=== PATIENT | female | born 2000 | race Caucasian/White ===

== ENCOUNTER 2022-04-25 09:09 | Emergency (ER) | payer MEDICAID, OTHER ==
[~2022-04-25] VITALS: Ht 165.1 cm; Wt 66.8 kg
[2022-04-25] MEDS ORDERED: HYDR50TA70 PO (09:19)
[2022-04-25] MEDS ORDERED: ABIL1INJ2 IM (09:19)
[2022-04-25] MEDS ORDERED: PRAZ1CAP PO (09:19)
[2022-04-25] MEDS ORDERED: TRIL1TAB PO (09:19)
[2022-04-25] MEDS ORDERED: KETO10TAB PO (11:22)
[2022-04-25] MEDS ORDERED: CYCL5TAB PO (11:22)
[2022-04-25 11:50] VITALS: BP 103/74
== END 2022-04-25 12:03 | disposition home or self-care (01) ==
LOC: M ED 09:09
DX: S13.4XXA Sprain of ligaments of cervical spine, initial encounter (principal); V47.1XXA Car passenger injured in collision with fixed or stationary object in nontraffic accident, initial encounter; Y92.410 Unspecified street and highway as the place of occurrence of the external cause; Y93.89 Activity, other specified; Y99.8 Other external cause status

== ENCOUNTER 2022-06-13 20:41 | Inpatient (IN) | payer MEDICAID, OTHER ==
[~2022-06-13] VITALS: Ht 165.1 cm; Wt 69.3 kg
[~2022-06-13 20:41] MED LIST: ABIL1INJ2 IM; CYCL5TAB PO; HYDR50TA70 PO; KETO10TAB PO; PRAZ1CAP PO; TRIL1TAB PO
[2022-06-13] MEDS ORDERED: NS 1,000 ML IV ONE (20:55)
[2022-06-13] MEDS ORDERED: HALOPERIDOL 5MG/ML 1ML VIAL IM STA (21:09)
[2022-06-13 21:25] LABS: HEMATOCRIT 37.6 % (36.0-47.0); MEAN CORPUSCULAR HEMOGLOBIN 26.8 pg (27.0-33.0); MEAN CORPUSCULAR HGB CONC 31.9 g/dl (32.0-36.5); MEAN CORPUSCULAR VOLUME 84.1 fl (80.0-96.0); PLATELET COUNT, AUTOMATED 384 10^3/uL (150-450); RED BLOOD COUNT 4.47 10^6/uL (4.00-5.40); WHITE BLOOD COUNT 9.7 10^3/uL (4.0-10.0)
[2022-06-13 21:50] LABS: ETHYL ALCOHOL (ETHANOL) < 0.003 % (0.000-0.010)
[2022-06-13 21:52] LABS: ACETAMINOPHEN LEVEL < 2.0 UG/ML (10.0-20.0); ALKALINE PHOSPHATASE 91 U/L (46-116); ALT/SGPT 36 U/L (7.0-40); AST/SGOT 33 U/L (<34); BILIRUBIN,DIRECT < 0.1 MG/DL (<0.4); BILIRUBIN,TOTAL 0.3 MG/DL (0.3-1.2); BLOOD UREA NITROGEN 9 MG/DL (9-23); CARBON DIOXIDE LEVEL 25 MMOL/L (20-31); CHLORIDE LEVEL 107 MMOL/L (98-107); GLOMERULAR FILTRATION RATE > 60.0 (>60); GLUCOSE, FASTING 92 MG/DL (60-100); HCG, SERUM QUALITATIVE NEGATIVE (NEGATIVE); POTASSIUM SERUM 4.3 MMOL/L (3.5-5.1); SALICYLATE LEVEL < 3.0 MG/DL (<30); SODIUM LEVEL 138 MMOL/L (136-145); TOTAL PROTEIN 7.1 G/DL (5.7-8.2)
[2022-06-13] MEDS ORDERED: HYDR50TA70 PO (21:52)
[2022-06-13] MEDS ORDERED: PRAZ1CAP PO (21:52)
[2022-06-13] MEDS ORDERED: OXCA300T14 PO (21:52)
[2022-06-13] MEDS ORDERED: ABIL1INJ2 IM (21:52)
[2022-06-13 21:54] LABS: THYROID STIMULATING HORMONE 1.702 uIU/ML (0.55-4.78)
[2022-06-13] MEDS ORDERED: HOME MED LIST COMPLETE! XX SCH (21:55)
[2022-06-14 01:50] LABS: AMPHETAMINES LEVEL URINE NEGATIVE (NEGATIVE); BENZODIAZEPINES URINE NEGATIVE (NEGATIVE)
[2022-06-14 01:51] LABS: BARBITURATES URINE NEGATIVE (NEGATIVE); CANNABINOIDS URINE NEGATIVE (NEGATIVE); COCAINE METABOLITE URINE NEGATIVE (NEGATIVE); METHADONE URINE NEGATIVE (NEGATIVE); OPIATES URINE NEGATIVE (NEGATIVE); PHENCYCLIDINE URINE NEGATIVE (NEGATIVE)
[2022-06-14] MEDS ORDERED: OLANZapine ORAL DISINTEGRATING TAB 5MG PO PRN (03:35)
[2022-06-14] MEDS ORDERED: traZODone 50 MG TAB PO PRN (03:35)
[2022-06-14] MEDS ORDERED: MAALOX 30 ML SUSP *UDC PO PRN (03:35)
[2022-06-14] MEDS ORDERED: MOM 30ML SUSPENSION UDC PO PRN (03:35)
[2022-06-14 05:47] VITALS: BP 109/61
[2022-06-14] MEDS: OXcarbazepine 300 MG TAB PO SCH ×2 (09:09→21:31)
[2022-06-14 16:07] VITALS: BP 114/57
[2022-06-14] MEDS: PRAZOSIN 1 MG CAP PO SCH (21:32)
[2022-06-15 06:15] VITALS: BP 135/70
[2022-06-15] MEDS: OXcarbazepine 300 MG TAB PO SCH ×2 (09:39→20:09)
[2022-06-15 18:03] VITALS: BP 138/69
[2022-06-15 20:09] VITALS: BP 122/78
[2022-06-15] MEDS: PRAZOSIN 1 MG CAP PO SCH (20:09)
[2022-06-16 06:59] VITALS: BP 102/56
[2022-06-16] MEDS: OXcarbazepine 300 MG TAB PO SCH (08:38)
[2022-06-16] MEDS ORDERED: HYDR50TA70 PO (10:49)
[2022-06-16] MEDS ORDERED: OXCA300T14 PO (10:49)
[2022-06-16] MEDS ORDERED: ABIL1INJ2 IM (10:49)
== END 2022-06-16 13:37 | disposition home or self-care (01) | DRG 750 ==
LOC: EDSEX 20:41 → EDBD 20:41 → M ED 20:41 → M ED INP 06-14 03:14 → M PSY 06-14 05:15
PROVIDERS: ADMIT Psychiatry & Neurology Psychiatry; ATTEND Psychiatry & Neurology Psychiatry
DX: F25.0 Schizoaffective disorder, bipolar type (principal); R45.851 Suicidal ideations; F43.10 Post-traumatic stress disorder, unspecified; F90.9 Attention-deficit hyperactivity disorder, unspecified type; Z91.410 Personal history of adult physical and sexual abuse; Z81.8 Family history of other mental and behavioral disorders; Z20.822 Contact with and (suspected) exposure to COVID-19; Z79.899 Other long term (current) drug therapy; Z91.51 Personal history of suicidal behavior

== ENCOUNTER 2022-07-04 10:39 | Emergency (ER) | payer MEDICAID ==
[~2022-07-04] VITALS: Ht 165.1 cm; Wt 70.7 kg
[~2022-07-04 10:39] MED LIST changes: +OXCA300T14 PO
[2022-07-04 10:40] VITALS: BP 123/76
[2022-07-04 11:48] LABS: BASO # 0.1 10^3/uL (0.0-0.2); BASO % 0.7 % (0.0-1.0); EOS # 0.1 10^3/uL (0.0-0.5); EOS % 0.7 % (0.0-3.0); HEMATOCRIT 37.4 % (36.0-47.0); LYMPH # 1.6 10^3/uL (1.5-5.0); LYMPH % 22.3 % (24.0-44.0); MEAN CORPUSCULAR HEMOGLOBIN 26.7 pg (27.0-33.0); MEAN CORPUSCULAR HGB CONC 32.1 g/dl (32.0-36.5); MEAN CORPUSCULAR VOLUME 83.3 fl (80.0-96.0); MONO # 0.5 10^3/uL (0.0-0.8); MONO % 7.6 % (2.0-8.0); NEUTROPHILS # 4.9 10^3/uL (1.5-8.5); NEUTROPHILS % 68.4 % (36.0-66.0); PLATELET COUNT, AUTOMATED 388 10^3/uL (150-450); RED BLOOD COUNT 4.49 10^6/uL (4.00-5.40); WHITE BLOOD COUNT 7.1 10^3/uL (4.0-10.0)
[2022-07-04] MEDS ORDERED: ONDANSETRON 4MG 2ML VIAL IV ONE (12:00)
[2022-07-04 12:12] LABS: LIPASE 42 U/L (12-53)
[2022-07-04 12:13] LABS: HCG, SERUM QUALITATIVE NEGATIVE (NEGATIVE)
[2022-07-04 12:15] LABS: ALBUMIN 3.9 G/DL (3.2-5.2); ALKALINE PHOSPHATASE 102 U/L (46-116); ALT/SGPT 35 U/L (7.0-40); AST/SGOT 21 U/L (<34); BILIRUBIN,DIRECT < 0.1 MG/DL (<0.4); BILIRUBIN,TOTAL 0.2 MG/DL (0.3-1.2); BLOOD UREA NITROGEN 9 MG/DL (9-23); CALCIUM LEVEL 8.7 MG/DL (8.5-10.1); CARBON DIOXIDE LEVEL 27 MMOL/L (20-31); CHLORIDE LEVEL 106 MMOL/L (98-107); CREATININE FOR GFR 0.57 MG/DL (0.55-1.30); GLOMERULAR FILTRATION RATE > 60.0 (>60); GLUCOSE, FASTING 107 MG/DL (60-100); POTASSIUM SERUM 4.2 MMOL/L (3.5-5.1); SODIUM LEVEL 142 MMOL/L (136-145); TOTAL PROTEIN 7.2 G/DL (5.7-8.2)
[2022-07-04] MEDS ORDERED: ONDA4TAB6 PO (12:40)
== END 2022-07-04 12:57 | disposition home or self-care (01) ==
LOC: M ED 10:39
DX: R11.2 Nausea with vomiting, unspecified (principal); R19.7 Diarrhea, unspecified; F31.9 Bipolar disorder, unspecified; Z79.899 Other long term (current) drug therapy
CPT/HCPCS: 36415; 80048; 80076; 83690; 84703; 85025; 96374; 99284; J2405